=== PATIENT | male | born 1965 | race Native Hawaiian/Other Pacific Islander ===

== ENCOUNTER 2017-04-12 12:24 | Observation (INO) | payer OTHER ==
[~2017-04-12] VITALS: Ht 175.3 cm; Wt 130.3 kg
[2017-04-12 12:30] VITALS: BP 203/118; TEMP 98.3
[2017-04-12 12:53] VITALS: BP 169/101
[2017-04-12 14:06] LABS: PLATELET COUNT 244 K/uL (142-355)
[2017-04-12 14:38] LABS: POTASSIUM 3.2 mmol/L (3.6-5.2)
[2017-04-12 17:35] VITALS: BP 174/109
[2017-04-12 19:00] VITALS: BP 167/113; TEMP 98; Ht 175.3 cm; Wt 130.3 kg
[2017-04-12 20:03] VITALS: BP 189/97; TEMP 97.9
[2017-04-13] VITALS: BP 156/93; TEMP 97.7
--- NOTE | 2017-04-13 00:20 | NUR ---
04/12/[address] leigh about pts home meds and previous lab results (troponin 1.5). ask if pt needed nitro added or increase lovenox to 1mg/kg for CP protocal. all home meds restarted. dr leigh stated not to add nitro or increase lovenox he is more concered with the bnp level and CHF.
[2017-04-13 04:00] VITALS: BP 178/104; TEMP 97.8
[2017-04-13 04:54] LABS: PLATELET COUNT 227 K/uL (142-355)
[2017-04-13 05:12] LABS: POTASSIUM 3.5 mmol/L (3.6-5.2)
[2017-04-13 08:00] VITALS: BP 187/103; TEMP 98.2
--- NOTE | 2017-04-13 09:35 | NUR ---
HYDRALAZINE GIVEN IVP PER PROTOCOL AT THIS TIME. PT TOLERATED WELL. WILL CONTINUE TO MONITOR AND WILL RECHECK BLOOD PRESSURE IN 20 MINUTES.
--- NOTE | 2017-04-13 10:00 | NUR ---
BLOOD PRESSURE RECHECKED AND IS 164/82 AFTER HYDRALAZINE. HOSPITALIST NOTIFIED.
--- NOTE | 2017-04-13 11:13 | NUR ---
D/C INSTRUCTIONS AND PRESCRIPTIONS GIVEN. IV AND TELE D/C'D. PT HAS FU WITH DR. BARNHART 04-14-17 AT 0830. PT HAS NO FUTHER QUESTIONS. PT AMBULATED OUT TO VEHICLE AT THIS TIME. NO PROBLEMS NOTED.
== END 2017-04-13 11:08 | disposition home or self-care (01) ==
LOC: ED 12:24 → MED/SURG 16:15
PROVIDERS: ADMIT Emergency Medicine
DX: I50.21 Acute systolic (congestive) heart failure (principal); I10 Essential (primary) hypertension
CPT/HCPCS: 36415; 80053; 80061; 80307; 80320; 81000; 82550; 82553; 83735; 83880; 84484; 85027; 85610; 85730; 93005; 94760; 96372; 96374; 96375; 99220; 99284; G0378; G0479; J0360; J1650; J1940; J3475

== ENCOUNTER 2020-09-26 14:32 | Emergency (ER) | payer OTHER ==
[~2020-09-26] VITALS: Ht 175.3 cm; Wt 114.3 kg
[2020-09-26 14:36] VITALS: TEMP 97.1
[2020-09-26 15:09] LABS: PLATELET COUNT 264 K/uL (142-355)
[2020-09-26] MEDS ORDERED: VALS160T2 PO (15:09)
[2020-09-26] MEDS ORDERED: CLOP75TA2 PO (15:10)
[2020-09-26] MEDS ORDERED: CARV25TA PO (15:10)
[2020-09-26] MEDS ORDERED: SPIRONOLACT25 MG PO (15:10)
[2020-09-26] MEDS ORDERED: HYDR25TA60 PO (15:10)
[2020-09-26 15:27] LABS: PARTIAL THROMBOPLASTIN TIME 26.3 SECONDS (24.5-33.6)
[2020-09-26 15:36] LABS: POTASSIUM 3.4 mmol/L (3.6-5.2); SODIUM 140 mmol/L (136-145)
[2020-09-26 16:15] VITALS: BP 121/94
== END 2020-09-26 16:33 | disposition home or self-care (01) ==
LOC: ED 14:32
PROVIDERS: Hospitalist
DX: I16.0 Hypertensive urgency (principal); S39.81XA Other specified injuries of abdomen, initial encounter; X50.9XXA Other and unspecified overexertion or strenuous movements or postures, initial encounter; Y92.89 Other specified places as the place of occurrence of the external cause
CPT/HCPCS: 36415; 80053; 80307; 81000; 82550; 83880; 84484; 85027; 85610; 85730; 93005; 96374; 99284; J1885

== ENCOUNTER 2021-03-26 16:35 | Emergency (ER) | payer OTHER ==
[~2021-03-26] VITALS: Ht 175.3 cm; Wt 114.3 kg
[~2021-03-26 16:35] MED LIST: CARV25TA PO; CLOP75TA2 PO; HYDR25TA60 PO; SPIRONOLACT25 MG PO; VALS160T2 PO
[2021-03-26 16:49] VITALS: BP 172/97; TEMP 98.5
== END 2021-03-26 17:44 | disposition home or self-care (01) ==
LOC: ED 16:35
PROC: 0H9KXZZ Drainage of Right Lower Leg Skin, External Approach (ICD-10-PCS; principal; 2021-03-26)
DX: L03.115 Cellulitis of right lower limb (principal); S80.821A Blister (nonthermal), right lower leg, initial encounter; X58.XXXA Exposure to other specified factors, initial encounter; Y92.89 Other specified places as the place of occurrence of the external cause
CPT/HCPCS: 96372; 99283; J0696; J1885